=== PATIENT | female | born 1990 | race Caucasian/White ===

== ENCOUNTER 2020-10-28 18:11 | Emergency (ER) | payer OTHER ==
[~2020-10-28 18:11] MED LIST: CATAPRES 0.1MG0.1 MG PO; FEOSOL325 MG PO; IBUPROFEN600 MG PO; MOTRIN IB200 MG PO; PRILOSEC OTC20 MG PO; VITAMIN B-625 MG PO; ZOLOFT100 MG PO
== END 2020-10-28 19:50 | disposition left against medical advice (07) ==
LOC: ER1 18:11
DX: L02.413 Cutaneous abscess of right upper limb (principal); I10 Essential (primary) hypertension; F17.200 Nicotine dependence, unspecified, uncomplicated; Z88.6 Allergy status to analgesic agent
CPT/HCPCS: 81001; 84703; 99283; J7030